=== PATIENT | male | born 1990 | race Caucasian/White ===

== ENCOUNTER 2019-05-16 18:47 | Emergency (ER) | payer OTHER ==
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
--- NOTE | 2019-05-16 19:41 | ED ---
Throat Pain/Nasal Congestion - HPI Summary HPI Summary: Patient complains of dental pain on right lower side jaw starting yesterday. States history of broken tooth 3 months, but aggravated it yesterday with impacted food. Patient was trying to remove impacted food when pain started. Denies fever, cough, sore throat, CP, SOB, N/V/V abdominal pain, change in urine , change in BM, purulent drainage. - History of Current Complaint Chief Complaint: EDDentalPain Time Seen by Provider: 05/16/19 19:30 Hx Obtained From: Patient Onset/Duration: Sudden Onset, Lasting Hours Severity: Moderate Associated Signs And Symptoms: Positive: Negative Cough: None - Allergies/Home Medications Allergies/Adverse Reactions: Allergies Allergy/AdvReac Type Severity Reaction Status Date / Time No Known Allergies Allergy Verified 12/13/14 17:37 PMH/Surg Hx/FS Hx/Imm Hx Endocrine/Hematology History: Denies: Hx Diabetes Cardiovascular History: Denies: Hx Hypertension, Hx Pacemaker/ICD Respiratory History: Reports: Hx Asthma History: Denies: Hx Renal Disease Sensory History: Denies: Hx Hearing Aid Opthamlomology History: Denies: Hx Legally Blind EENT History: Denies: Hx Deafness Neurological History: Denies: Hx Dementia Psychiatric History: Denies: Hx Panic Disorder - Surgical History Surgery Procedure, Year, and Place: RT ANKLE GROWTH PLATE(PINS); EAR TUBES BILATERAL, TONSILECTOMY Infectious Disease History: No Infectious Disease History: Denies: Traveled Outside the [place] in Last 30 Days - Family History Known Family History: Positive: Non-Contributory - Social History Alcohol Use: Occasionally Hx Substance Use: No Hx Tobacco Use: No Review of Systems Constitutional: Negative Eyes: Negative Positive: Dental Pain Cardiovascular: Negative Respiratory: Negative Gastrointestinal: Negative Genitourinary: Negative Musculoskeletal: Negative Skin: Negative Neurological: Negative Psychological: Normal All Other Systems Reviewed And Are Negative: Yes Physical Exam - Summary Physical Exam Summary: Multiple dental caries and cracked teeth. No oral lesions, evidence of abscess noted. Triage Information Reviewed: Yes Vital Signs On Initial Exam: Initial Vitals Temp Pulse Resp BP Pulse Ox 98.4 F 88 18 140/85 97 05/16/19 18:50 05/16/19 18:50 05/16/19 18:50 05/16/19 18:50 05/16/19 18:50 Vital Signs Reviewed: Yes Appearance: Positive: Well-Appearing Skin: Positive: Warm Head/Face: Positive: Normal Head/Face Inspection Eyes: Positive: Normal ENT: Positive: Normal ENT inspection Dental: Positive: Gross Decay/Caries @ Neck: Positive: Supple Respiratory/Lung Sounds: Positive: Clear to Auscultation Cardiovascular: Positive: Normal Abdomen Description: Positive: Nontender Musculoskeletal: Positive: Normal Neurological: Positive: Normal Psychiatric: Positive: Normal AVPU Assessment: Alert - [place] Coma Scale Best Eye Response: 4 - Spontaneous Best Motor Response: 6 - Obeys Commands Best Verbal Response: 5 - Oriented Coma Scale Total: 15 Diagnostics - Vital Signs Vital Signs Temp Pulse Resp BP Pulse Ox 05/16/19 18:50 98.4 F 88 18 140/85 97 - Laboratory Lab Statement: Any lab studies that have been ordered have been reviewed, and results considered in the medical decision making process. EENT Course/Dx - Course Course Of Treatment: She is in remission the Patient complains of dental pain on right lower side jaw starting yesterday. States history of broken tooth 3 months, but aggravated it yesterday with impacted food. Patient was trying to remove impacted food when pain started. Denies fever, cough, sore throat, CP, SOB, N/V/V abdominal pain, change in urine, change in BM, purulent drainage. Vital signs within normal limits. Patient advised he needs to follow-up with dentist. Patient started on Pen-Vee K, Rx for same. Patient approves and understands plan. - Diagnoses Provider Diagnoses: Pain, dental, Jaw pain Discharge ED - Sign-Out/Discharge Documenting (check all that apply): Patient Departure Patient Received Moderate/Deep Sedation with Procedure: No - Discharge Plan Condition: Stable Disposition: HOME Prescriptions: Penicillin VK 500 MG TAB(NF) [Penicillin VK 500 mg Tab] 500 mg PO QID 7 Days # 28 tab Patient Education Materials: Dental Abscess (ED), Toothache (ED) Referrals: Emmy MAXWELL,[place] [Primary Care Provider] - Additional Instructions: Take antibiotics as directed. Follow up with your dentist. Alternate ibuprofen 600 mg with Tylenol 650 mg every 3 hours for pain. - Billing Disposition and Condition Condition: STABLE Disposition: Home - Attestation Statements Provider Attestation: I was available for consult. This patient was seen by the SALOMÓN. The patient was not presented to, seen by, or examined by me. Brad Ramirez MD
[2019-05-16] MEDS: Penicillin VK TAB* 250 MG PO ONE (19:56)
[2019-05-16 19:59] VITALS: BP 110/71
== END 2019-05-16 19:58 | disposition home or self-care (01) ==
LOC: ED 18:47
DX: K08.89 Other specified disorders of teeth and supporting structures (principal); R68.84 Jaw pain; J45.909 Unspecified asthma, uncomplicated
CPT/HCPCS: 99282; A9270-GY